=== PATIENT | male | born 1955 | race Two or more races ===

== ENCOUNTER → 2024-01-11 | Emergency (ER) | payer OTHER ==
[~2024-01-11] VITALS: Ht 170.2 cm; Wt 72.6 kg
== END | disposition left against medical advice (07) ==
LOC: ER 17:12
DX: S40.812A Abrasion of left upper arm, initial encounter (principal); W19.XXXA Unspecified fall, initial encounter; Y93.89 Activity, other specified; Y92.098 Other place in other non-institutional residence as the place of occurrence of the external cause; Y99.8 Other external cause status; Z88.0 Allergy status to penicillin; Z88.2 Allergy status to sulfonamides

== ENCOUNTER 2024-06-11 11:28 | Emergency (ER) | payer OTHER ==
[~2024-06-11] VITALS: Ht 167.6 cm; Wt 59.0 kg
[2024-06-11] MEDS ORDERED: FOSAMAX70 MG PO (11:49)
[2024-06-11] MEDS ORDERED: ACETAMINOPHEN 500 MG GEL..CAP PO ONE ×2 (12:30→12:32)
[2024-06-11 12:47] LABS: HEMATOCRIT 41.6 % (39.0-48.0); HEMOGLOBIN 14.2 g/dL (13-16.00); MEAN CELL VOLUME 90.7 fL (80.0-100.00); MEAN CORPUSCULAR HGB CONC 34.2 g/dl (32.0-36.0); PLATELET COUNT 206 K/uL (150-450); RED BLOOD COUNT 4.59 M/uL (4.00-6.00); RED CELL DISTRIBUTION WIDTH 15.6 % (11.5-14.5)
[2024-06-11 13:13] LABS: ERYTHROCYTE SEDIMENTATION RATE 16 mm/hr
[2024-06-11 13:53] LABS: CALCIUM 8.8 mg/dL (8.5-10.1); CREATININE SERUM 0.95 mg/dL (0.70-1.30); GFR 78.15; POTASSIUM 4.32 mEq/L (3.5-5.1)
[2024-06-11 13:54] LABS: C-REACTIVE PROTEIN 1.7 MG/DL (0.00-0.29)
== END 2024-06-11 14:34 | disposition home or self-care (01) ==
LOC: ER 11:29
PROVIDERS: General Practice
DX: M79.642 Pain in left hand (principal); M19.90 Unspecified osteoarthritis, unspecified site; Z88.0 Allergy status to penicillin; Z88.2 Allergy status to sulfonamides

== ENCOUNTER 2024-12-12 09:36 | Outpatient (CLI) | payer OTHER ==
[~2024-12-12 09:36] MED LIST: FOSAMAX70 MG PO
== END 2024-12-12 09:44 | disposition home or self-care (01) ==
LOC: SONOGRAMA 09:36
PROVIDERS: ATTEND General Practice
DX: R31.9 Hematuria, unspecified (principal)

== ENCOUNTER 2024-12-22 11:54 | Outpatient (CLI) | payer OTHER | END 2024-12-22 12:01 | disposition home or self-care (01) | LOC: RAD 11:54 | PROVIDERS: ATTEND Orthopaedic Surgery Adult Reconstructive Orthopaedic Surgery | DX: I11.9 Hypertensive heart disease without heart failure (principal) ==

== ENCOUNTER → 2024-12-22 12:37 | Outpatient (CLI) | payer OTHER ==
[2024-12-22 13:40] LABS: PARTIAL THROMBOPLASTIN TIME 27.9 SECONDS (22.0-34.0); PROTHROMBIN TIME 10.9 SECONDS (9.0-11.5)
== END | disposition home or self-care (01) ==
LOC: LAB 12:37
PROVIDERS: ATTEND Orthopaedic Surgery Adult Reconstructive Orthopaedic Surgery
DX: I11.9 Hypertensive heart disease without heart failure (principal); D68.9 Coagulation defect, unspecified

== ENCOUNTER 2025-04-09 09:37 | Outpatient (CLI) | payer OTHER | END 2025-04-09 09:43 | disposition home or self-care (01) | LOC: RAD 09:37 | PROVIDERS: ATTEND Orthopaedic Surgery Adult Reconstructive Orthopaedic Surgery | DX: M16.11 Unilateral primary osteoarthritis, right hip (principal); M16.12 Unilateral primary osteoarthritis, left hip; Z96.642 Presence of left artificial hip joint ==